=== PATIENT | male | born 1990 | race Two or more races ===

== ENCOUNTER 2020-05-03 16:44 | Emergency (ER) | payer SELFPAY ==
[~2020-05-03] VITALS: Ht 160 cm; Wt 70.4 kg
[2020-05-03 17:13] VITALS: BP 143/92
--- NOTE | 2020-05-03 17:13 | PHYS DOC ---
General Adult EDM: Chief Complaint: GENERALIZED BODY ACHES HPI: HPI: Patient is a 29 year old speaking male, [place] clinical auditor service #[id number] interpreted HPI. Patient's states he has been having intermittent muscle cramping and muscle spasms since being seen yesterday at [facility] for nausea, vomiting, diarrhea, and headaches. Patient states all his symptoms he was seen for at [facility] has resolved, however he was given medications and his IV that has since caused him to have muscle cramping and muscle spasms uncontrollably since being discharged yesterday. Patient reports intermittent fever and chills at home and was diagnosed as a PUI for the COVID- 19 virus yesterday and is awaiting confirmation results. Patient denies current loss of taste or loss of smell, denies headaches, nausea, vomiting, diarrhea, abdominal pain, denies chest pains, denies shortness of breath, denies chest palpitations, denies problems urinating, denies bowel movement problems, denies loss of sensation, denies visual disturbances, states his generalized body aches have resolved since his care at [facility] yesterday. Patient currently denies muscle cramping and muscle spasms. Patient reports he is a former marijuana user cocaine user and drink alcohol however states he stopped 1 month ago. Review of Systems: Review of Systems: 14 body systems of review of systems have been reviewed. See HPI for pertinent positives and negative responses, otherwise all other systems are negative, nonpertinent or noncontributory. Heart Score: Risk Factors: Risk Factors: DM, Current or recent (<one month) smoker, HTN, HLP, family history of CAD, obesity. Risk Scores: Score 0 - 3: 2.5% MACE over next 6 weeks - Discharge Home Score 4 - 6: 20.3% MACE over next 6 weeks - Admit for Clinical Observation Score 7 - 10: 72.7% MACE over next 6 weeks - Early Invasive Strategies Current Medications: Patient denies prescription medications, reports taking Tylenol for fevers at home. Physical Exam: PE: Constitutional: Well developed, well nourished, no acute distress, non-toxic appearance. HENT: Normocephalic, atraumatic, bilateral external ears normal, oropharynx moist, no oral exudates, nose normal. Eyes: PERRLA, EOMI, conjunctiva normal, no discharge. Neck: Normal range of motion, no tenderness, supple, no stridor. Cardiovascular:Heart rate regular rhythm, no murmur Lungs & Thorax: Bilateral breath sounds clear to auscultation Abdomen: Bowel sounds normal, soft, no tenderness, no masses, no pulsatile masses. Skin: Warm, dry, no erythema, no rash. Back: No tenderness, no CVA tenderness. Extremities: No tenderness, no cyanosis, no clubbing, ROM intact, no edema. Neurologic: Alert and oriented X 3, normal motor function, normal sensory function, no focal deficits noted. Psychologic: Affect normal, judgement normal, mood normal. EKG: EKG: [] Radiology/Procedures: Radiology/Procedures: [] Course & Med Decision Making: Course & Med Decision Making Pertinent Labs and Imaging studies reviewed. (See chart for details) 29-year-old male, vital signs reviewed, reports emergency department today complaining of muscle spasms and uncontrollable muscle stiffness intermittently since being treated at [facility] yesterday. Reviewed patient's discharge instructions [facility], patient was treated with IV normal saline, IV Toradol, IV Benadryl, IV Compazine, there were no dosages given on the discharge instructions. Patient is currently a PUI pending results, PPE consisted of N95 mask, goggles, face shield, disposable PPE gown, gloves, and in room air purifier during phys ical examination of the patient. Physical exam most likely dystonia reaction from IV Compazine. Will treat in ED with p.o. Benadryl, will give cyclobenzaprine for muscle aches from ongoing muscle spasms. Discussed with patient likely does gnosis of dystonic reaction, patient gave verbal understanding of discharge home instructions, follow-up with primary care for ongoing problems, return to the emergency department precautions and concerns, continue to self isolate related to PUI status, patient discharged home, there was no dystonia reaction at time of discharge. Patient's HPI, physical examination, and discharge instructions were interpreted by fire alarm repairer #[id number]. Diallo Disclaimer: Diallo Disclaimer: This electronic medical record was generated, in whole or in part, using a voice recognition dictation system. Departure Departure Impression: Primary Impression: Dystonic drug reaction Additional Impression: Person under investigation for COVID-19 Disposition: 01 DC HOME SELF CARE/HOMELESS Condition: GOOD Referrals: NO PCP (PCP) Patient Instructions: Dystonic Reaction Additional Instructions: Please take medications as prescribed, continue to self isolate as you are under investigation of COVID-19 virus, follow-up with your primary care doctor for ongoing symptoms, return to the emergency department for worsening symptoms or other concerns. Definicin Se le realiz la prueba de deteccin del COVID-19 o se le diagnostic dicha enfermedad. Es lea infeccin ocasionada por un nuevo tipo de coronavirus. En la mayora de los casos, el COVID-19 provoca sntomas similares a los del resfriado. En algunas personas, puede ocasionar sntomas ms graves, jorge problemas respiratorios. No existe un tratamiento para el virus COVID-19. El cuerpo elimina la infeccin con el tiempo. El cuidado personal ayuda a aliviar el malestar. Pasos que debe seguir 1. Cuidados personales Descanse cuando sea necesario. Los hbitos saludables pueden ayudarlo a sentirse mejor. Algunas medidas para lograr cambios incluyen lo siguiente: - Elija alimentos saludables, jorge frutas y verduras. [place] abundante cantidad de agua virgilio todo el da. - Duerma tg por la noche. - Si fuma, intente no hacerlo. [place] ayudar a mejorar la respiracin. - Evite el alcohol. 2. Mantenga sanos a los dems El virus puede contagiarse a otras personas. Cada vez que estornuda o tose, se liberan gotitas. Las gotitas pueden entrar en la boca, la nariz o los ojos de las personas que se encuentran cerca de usted y ocasionar la infeccin. Para reducir las probab ilidades de contagiar el virus COVID-19 a otros, tenga en cuenta lo siguiente: - Qudese en casa el tiempo que el mdico se lo indique. Es posible que deba quedarse en casa hasta que la enfermedad desaparezca. Salga nicamente para recibir atencin mdica o en shelly de urgencia. - Evite las reas pblicas, los eventos o el transporte pblico. No reanude las actividades laborales o escolares hasta que el mdico lo autorice. - Llame previamente si necesita asistir a un centro mdico. Avise que es posib le que haya contrado COVID-19. [place] ayudar a que le indiquen adonde debe dirigirse. Tanya pueden pedirle que use lea mscara facial cuando vaya al consultorio. Si llama a los servicios de asistencia mdica de urgencias, avseles que es posible que haya contrado COVID-19. Mientras est en casa: - Evite el contacto directo con otras personas. Mantngase a lea distancia ap roximada de 2 metros. Si es posible, pasen la mayor parte del tiempo en bellamy separadas. - Use lea mscara facial si estar en contacto directo con otras personas, por ejemplo, si compartir lea habitacin o un vehculo. - Pida a alguien que limpie las superficies comunes de la casa. Limpie picaportes, mesadas y lavamanos con limpiadores domsticos todos los cabrera. - Al toser o estornudar, cbrase con un pauelo de papel. Despus de usarlo, deschelo de inmediato. Si no tiene un pauelo de papel, tosa o estornude en el pliegue del codo. - Lvese las krishan con frecuencia. Lvese las krishan despus de estornudar o toser. Lvese con agua y jabn virgilio, al menos, 20 segundos. Si no dispone de agua y jabn, use un limpiador de krishan a base de alcohol. - No cocine para otros. Evite compartir objetos personales, jorge tenedores, cucharas o cepillos de dientes. - Mientras est enfermo, evite el contacto directo con las mascotas. No hay indicios de si el virus se transmite a las mascotas. Esta es lea medida de seguridad que debe tenerse en cuenta hasta que se sepa ms acerca de dom virus. El aislamiento puede ser frustrante. La interaccin social puede ayudar. Mantngase en contacto con amigos y familiares por telfono u otros medios tecnolgicos. Puede interactuar con otras personas en el hogar, xuan mantenga lea distancia bagley de aproximadamente 2 metros. Seguimiento Las pruebas para confirmar la presencia del COVID-19 pueden demorar algunos cabrera. Es posible que deba seguir los pasos mencionados anteriormente hasta que estn los resultados de las pruebas. Lo llamarn del consultorio mdico para saber si saez habido algn cambio en nguyen matthew. Tambin le avisarn cuando pueda volver a estar cerca de otras personas. Problemas a los que debe estar atento Comunquese con el mdico si no se recupera segn lo previsto o si tiene problemas jorge los siguientes: - Dificultad para respirar - Dolor de pecho - Empeoramiento de los sntomas Si kalli que tiene lea urgencia, llame a los servicios de asistencia mdica de urgencias de inmediato. As taken from [facility] EMERGENCY DEPARTMENT GENERAL DISCHARGE INSTRUCTIONS Thank you for coming to [facility] Emergency Department (ED) today and trusting us with you care. We trust that you had a positive experience in our Emergency Department. If you wish to speak to the department management, you may call the Director at [phone]. YOUR FOLLOW UP INSTRUCTIONS ARE FOLLOWS: 1. Do you have a private Doctor? If you do not have a private doctor, please ask for a resource list of physicians or clinics that may be able to assist you with follow up care. 2. The Emergency Physicain has interpreted your x-rays. The X-Ray specialist will also review them. If there is a change in the findings, you will be notified in 48 hours when at all possible. 3. A lab test or culture has been done, your results will be reviewed and you will be notified if you need a change in treatment. ADDITIONAL INSTRUCTIONS AND INFORMATION: 1. Your care today has been supervised by a physician who is specially trained in emergency care. Many problems require more than one evaluation for a complete diagnosis and treatment. We recommend that you schedule your follow up appointment as recommended to ensure complete treatment of you illness or injury. If you are unable to obtain follow up care and continue to have a problem, or if your condition worsens, we recommend that you return to the ED. 2. We are not able to safely determine your condition over the phone nor are we able to give sound medical advice over the phone. For these safety reasons, if you call for medical advice we will ask you to come to the ED for further evaluation. 3. If you have any questions regarding these discharge instructions please call the ED at [phone]. SAFETY INFORMATION: In the interest of safety, wellness, and injury prevention; we encourage you to wear your sealbelt, if you smoke; quite smoking, and we encourage family to use a protective helmet for bicycling and other sporting events that present an increased risk for head injury. IF YOUR SYMPTOMS WORSEN OR NEW SYMPTOMS DEVELOP, OR YOU HAVE CONCERNS ABOUT YOUR CONDITION; OR IF YOUR CONDITION WORSENS WHILE YOU ARE WAITING FOR YOUR FOLLOW UP APPOINTMENT; EITHER CONTACT YOUR PRIMARY CARE DOCTOR, THE PHYSICIAN WHOSE NAME AND NUMBER YOU WERE GIVEN, OR RETURN TO THE ED IMMEDIATELY. Scripts Cyclobenzaprine Hcl (CYCLOBENZAPRINE HCL) 10 Mg Tablet 10 MG PO TID for MUSCLE SPASMS, #12 TAB 0 Refills Prov: JEANINE AVILA OPEN DEVELOPER OPERATOR 05/03/20 Diphenhydramine Hcl (DIPHENHYDRAMINE HCL) 25 Mg Tablet 1 TAB PO TID PRN PRN for ADVERSE REACTION SYMPTOMS, #12 TAB 0 Refills Prov: JEANINE AVILA APRN 05/03/20 JEANINE AVILA APRN May 03, 2020 17:13
[2020-05-03] MEDS ORDERED: diphenhydrAMINE HCL 25 MG CAPSULE PO ONE (17:15)
[2020-05-03] MEDS ORDERED: CYCLOBENZAPRINE 10 MG TABLET. PO ONE (17:15)
[2020-05-03] MEDS ORDERED: DIPH25TA24 PO (17:33)
[2020-05-03] MEDS ORDERED: CYCL10TA2 PO (17:33)
== END 2020-05-03 17:56 | disposition home or self-care (01) ==
LOC: ER 16:44
DX: G24.09 Other drug induced dystonia (principal); R11.2 Nausea with vomiting, unspecified; Z20.818 Contact with and (suspected) exposure to other bacterial communicable diseases; R19.7 Diarrhea, unspecified
CPT/HCPCS: 99283; Q0163

== ENCOUNTER 2021-01-09 19:43 | Emergency (ER) | payer SELFPAY ==
[~2021-01-09 19:43] MED LIST: CYCL10TA2 PO; DIPH25TA24 PO
== END 2021-01-09 22:03 | disposition left against medical advice (07) ==
LOC: ER 19:43
DX: R00.0 Tachycardia, unspecified (principal); Z53.21 Procedure and treatment not carried out due to patient leaving prior to being seen by health care provider